=== PATIENT | male | born 1990 | race Caucasian/White ===

== ENCOUNTER 2022-08-06 13:13 | Emergency (ER) | payer SELFPAY ==
[~2022-08-06 13:13] MED LIST: LISI20TA28
== END 2022-08-06 16:16 | disposition left against medical advice (07) ==
LOC: ER 13:13
DX: M79.644 Pain in right finger(s) (principal); Z53.21 Procedure and treatment not carried out due to patient leaving prior to being seen by health care provider

== ENCOUNTER 2022-11-22 08:38 | Emergency (ER) | payer BC, OTHER ==
[~2022-11-22] VITALS: Ht 190.5 cm; Wt 92.5 kg
[2022-11-22 09:08] VITALS: BP 147/83
[2022-11-22] MEDS ORDERED: PIPERACILLIN-TAZOB 3.375GM 100 ML IV ONE (10:15)
[2022-11-22] MEDS ORDERED: VANCOMYCIN 1GM/250ML 250 ML IV ONE (10:15)
[2022-11-22] MEDS ORDERED: SODIUM CHLORIDE 0.9% 2,800 ML IV ONE (10:30)
[2022-11-22 11:17] LABS: Basophils # (auto) 0.1 10 ^3/uL (0-0.2); Basophils % (auto) 0.6 % (0.0-2.0); Eosinophils # (auto) 0.1 10 ^3/uL (0-0.8); Eosinophils % (auto) 0.6 % (0.0-7.0); Hemoglobin 15.8 g/dL (13.5-17.5); Lymphocytes # (auto) 1.4 10 ^3/uL (0.4-5.4); Lymphocytes % (auto) 14.9 % (10.0-50.0); Mean Corpuscular Hemoglobin 30.6 pg (28.0-32.0); Mean Corpuscular Hgb Conc. 33.6 g/dL (32.0-36.0); Mean Corpuscular Volume 91.3 fL (80.0-100.0); Monocytes # (auto) 0.7 10 ^3/uL (0-1.3); Monocytes % (auto) 7.2 % (0.0-12.0); Neutrophils % (auto) 76.7 % (37.0-80.0); Nucleated Red Blood Cells % 0.2 %; Red Blood Cells 5.15 10^6/uL (4.5-5.90); White Blood Cell 9.2 10^3/uL (4.4-10.8)
[2022-11-22 13:09] LABS: Potassium 4.3 mmol/L (3.5-5.1)
[2022-11-22 13:10] LABS: BUN/Creatinine Ratio 12.8
[2022-11-22 13:11] LABS: Calcium 8.5 mg/dL (8.5-10.1)
[2022-11-22 13:13] LABS: Albumin 3.9 g/dL (3.4-5.0); Bilirubin, Total 0.7 mg/dL (0.2-1.0); Total Protein 7.3 g/dL (6.4-8.2)
== END 2022-11-22 15:09 | disposition left against medical advice (07) ==
LOC: ER 08:38
DX: L03.011 Cellulitis of right finger (principal); Z79.899 Other long term (current) drug therapy
CPT/HCPCS: 36415; 73140; 73200; 80053; 83605; 85025; 87040